=== PATIENT | male | born 1995 | race Hispanic/Latino ===

== ENCOUNTER 2018-02-16 10:53 | Emergency (ER) | payer SELFPAY | END 2018-02-16 11:56 | disposition home or self-care (01) | LOC: MADERS 10:53 | DX: J20.9 Acute bronchitis, unspecified (principal); I10 Essential (primary) hypertension; F17.210 Nicotine dependence, cigarettes, uncomplicated; E11.22 Type 2 diabetes mellitus with diabetic chronic kidney disease; N18.6 End stage renal disease | CPT/HCPCS: 99283 ==

== ENCOUNTER 2018-02-22 13:25 | Emergency (ER) | payer SELFPAY ==
[2018-02-22] MEDS ORDERED: predniSONE 20 MG TAB ONE (14:45)
== END 2018-02-22 14:48 | disposition home or self-care (01) ==
LOC: MADERS 13:25
DX: J06.9 Acute upper respiratory infection, unspecified (principal); F17.210 Nicotine dependence, cigarettes, uncomplicated
CPT/HCPCS: 99283; J7506